=== PATIENT | male | born 1975 | race African-American/Black ===

== ENCOUNTER → 2023-10-04 13:01 | Outpatient (CLI) | payer BC, SELFPAY ==
--- NOTE | ~2023-10-04 | US_ITS ---
EXAMINATION: US venous doppler LE RT DATE: 10/04/2023 13:44 INDICATION: Right lower limb pain TECHNIQUE: Dia scale images without and with compression and Doppler images of the right lower extre mity veins were obtained. COMPARISON: None FINDINGS: There is thrombosis in the right popliteal vein. The right common femoral vein, profunda fe moral vein, femoral vein, peroneal trunk, posterior tibial veins, and greater saphenous vein are pavon nt. IMPRESSION: 1. Thrombosis in the right popliteal vein. Reviewed, dictated and finalized at location F. [employer]
== END ==
PROVIDERS: PCP Internal Medicine; Visit Provider Internal Medicine
DX: I82.432 Acute embolism and thrombosis of left popliteal vein (principal)
CPT/HCPCS: 93971

== ENCOUNTER 2023-10-04 14:18 | Emergency (ER) | payer BC, SELFPAY ==
[2023-10-04 14:30] VITALS: BP 185/101; PULSE 72; RESP 18; TEMP 36.6; O2SAT 100
[2023-10-04 14:37] VITALS: BP 117/58; PULSE 50; RESP 18; TEMP 36.7; O2SAT 98
--- NOTE | 2023-10-04 15:56 | ED.EXTPRO ---
HPI - Extremity Problem General Chief complaint: Extremity Problem,Nontraumatic Stated complaint: blood clot right leg Time Seen by Provider: 10/04/23 15:53 Source: patient Mode of arrival: ambulatory Limitations: no limitations Related Data Allergies Allergy/AdvReac Type Severity Reaction Status Date / Time atenolol Allergy Swelling Verified 10/04/23 15:07 nifedipine Allergy Nausea Verified 10/04/23 15:07 Course Vital Signs Vital signs: Vital Signs Temperature 36.6 C 10/04/23 14:30 Pulse Rate 72 10/04/23 14:30 Respiratory Rate 18 10/04/23 14:30 Blood Pressure 185/101 H 10/04/23 14:30 Pulse Oximetry 100 10/04/23 14:30 Oxygen Delivery Room Air 10/04/23 14:30 Temperature 36.7 C 10/04/23 14:37 Pulse Rate 50 L 10/04/23 14:37 Respiratory Rate 18 10/04/23 14:37 Blood Pressure 117/58 L 10/04/23 14:37 Pulse Oximetry 98 10/04/23 14:37 Oxygen Delivery Room Air 10/04/23 14:30 Discharge Plan Discharge Follow-up/Referrals: Elina,Larry Porras MD [Primary Care Provider] -
--- NOTE | 2023-10-04 16:12 | ED.EXTPRO ---
HPI - Extremity Problem General Chief complaint: Extremity Problem,Nontraumatic Stated complaint: blood clot right leg Time Seen by Provider: 10/04/23 15:53 Source: patient Mode of arrival: ambulatory Limitations: no limitations History of Present Illness HPI Narrative: patient is a 47-year-old male who presents the ED with no DVT. Patient reports he had at [facility]- around 1 month ago. He began have pain in his R ankle and posterior lower leg around 4-5 days ago. He then developed swelling in his lower leg yesterday and today. He contacted his primary care doctor for this and received an outpatient venous Doppler ultrasound today, which was positive for R popliteal DVT. He was then sent here for further evaluation. Patient denies any previous history of blood clots. No recent long-distance travel. No other immobilization. No recent surgery. No history of cancer. No hormone use. He denies any chest pain or shortness of breath. Denies cough, hemoptysis, fevers. Denies history of bleeding, rectal bleeding, melena, epistaxis, hematuria. Denies frequent falls. Related Data Allergies Allergy/AdvReac Type Severity Reaction Status Date / Time atenolol Allergy Swelling Verified 10/04/23 15:07 nifedipine Allergy Nausea Verified 10/04/23 15:07 Review of Systems Review of Systems: CONSTITUTIONAL: Denies fever, chills, or sweats. CARDIOVASCULAR: See HPI. RESPIRATORY: Denies cough or dyspnea. GASTROINTESTINAL: Denies abdominal pain, nausea, vomiting. MUSCULOSKELETAL: See HPI. NEUROLOGIC: Denies headache, numbness, or weakness. All systems reviewed & are unremarkable except as noted in HPI and below Exam Narrative: GENERAL: Well appearing, well-nourished, non-toxic, in no acute distress. HEAD: Normocephalic, atraumatic. NECK: Supple. No adenopathy, no masses. RESPIRATORY: Airway patent, respirations nonlabored. Clear to auscultation bilaterally, no rales, rhonchi, wheezing. CARDIOVASCULAR: Regular rate and rhythm without murmurs, rubs, or gallops. Pedal pulses 2+ and equal bilaterally. MUSCULOSKELETAL: Moves all extremities. Strength/ROM intact without gross deformities. Tenderness throughout R lower calf/posterior lower leg/ankle region. 1+ swelling noted. No wounds. No redness. SKIN: Warm, dry, normal color. No rashes. NEURO: A&O X3. Speech clear. Cranial nerves II-XII grossly intact. No ataxic movements. PSYCHIATRIC: Appropriate mood and affect. Normal interaction. Course Vital Signs Vital signs: Vital Signs Temperature 97.8 F 10/04/23 14:30 Pulse Rate 72 10/04/23 14:30 Respiratory Rate 18 10/04/23 14:30 Blood Pressure 185/101 H 10/04/23 14:30 Pulse Oximetry 100 10/04/23 14:30 Oxygen Delivery Room Air 10/04/23 14:30 Temperature 98.0 F 10/04/23 14:37 Pulse Rate 50 L 10/04/23 14:37 Respiratory Rate 18 10/04/23 14:37 Blood Pressure 117/58 L 10/04/23 14:37 Pulse Oximetry 98 10/04/23 14:37 Oxygen Delivery Room Air 10/04/23 14:30 MDM - Extremity (Nontraumatic) MDM Narrative Medical decision making narrative: Patient with positive venous Doppler ultrasound today showing right popliteal vein thrombosis. Provoking factors includes recent COVID-19 infection. No other history of blood clots. No other risk factors known. Patient denying any chest pain or shortness breath, dyspnea on exertion, pleuritic pain. No tachycardia, hypoxia, tachypnea noted. Patient will be started on Eliquis for DVT treatment. Advised close follow-up with primary care doctor for further evaluation. Given very strict return precautions. Discussed anticoagulation and risks of being of such medication. Patient agrees to plan. Discharged in stable condition. Medical Records Attestation: I reviewed the patient's medical records. Lab Data Attestation: I reviewed the patient's lab results. 10/04/23 16:25 10/04/23 16:25 Labs: Lab Results 10/04/23 Range/Units 16:25
[2023-10-04 16:31] LABS: Basophils Percent Auto 0.4 % (0.2-1.2); Eosinophils Absolute Auto 0.2 K/mm3 (0-0.3); Eosinophils Percent Auto 2.3 % (0-4.4); Hematocrit 41.6 % (42.0-52.0); Hemoglobin 13.2 g/dL (14.0-18.0); Immature Granulocyte Absolute 0.02 K/mm3 (0.00-0.031); Immature Granulocyte Percent A 0.3 % (0-0.5); Lymphocytes Absolute Auto 1.39 K/mm3 (0.9-3.2); Lymphocytes Percent Auto 20.2 % (18.3-44.2); Mean Corpuscular HGB Conc 31.7 g/dl (32-36); Mean Corpuscular Hemoglobin 31.3 pg (26-34); Mean Corpuscular Volume 98.6 fl (80-100); Mean Platelet Volume 10.4 fl (7.4-10.4); Monocytes Absolute Auto 0.8 K/mm3 (0.1-0.6); Monocytes Percent Auto 10.9 % (2.6-8.5); Neutrophils Absolute Auto 4.5 K/mm3 (1.3-6.7); Neutrophils Percent Auto 65.9 % (45.5-73.1); Platelet Count Result 156 k/mm3 (150-375); Red Blood Count 4.22 M/mm3 (4.6-6.20); Red Cell Distribution Width 12.4 % (11.5-14.5); White Blood Count 6.9 K/mm3 (4.5-10.0)
[2023-10-04 16:42] LABS: INR 1.1; Prothrombin Time 14.7 Seconds (11.1-14.7)
[2023-10-04 16:43] LABS: Partial Thromboplastin Time 29.3 SECONDS (22.3-36.8)
[2023-10-04 16:52] LABS: Alanine Aminotransferase 25 U/L (6-50); Alkaline Phosphatase 44 U/L (38-126); Anion Gap 9 mmol/L (8-16); Aspartate Amino Transferase 31 U/L (17-59); Bilirubin,Total 0.7 mg/dL (0.2-1.3); Blood Urea Nitrogen 22 mg/dL (9-20); Calcium 9.5 mg/dL (8.4-10.2); Carbon Dioxide 30 mmol/L (22-30); Chloride 99 mmol/L (98-107); Estimated Glomerular Filt Rate > 60; Glucose 90 mg/dL (65-110); Potassium 3.5 mmol/L (3.4-5.0); Sodium 138 mmol/L (137-145)
== END 2023-10-04 17:10 | disposition home or self-care (01) ==
LOC: ANHED 16:46
PROVIDERS: Emergency Provider Physician Assistant; PCP Internal Medicine
DX: I82.431 Acute embolism and thrombosis of right popliteal vein (principal); Z86.16 Personal history of COVID-19
CPT/HCPCS: 36415; 80053; 85025; 85610; 85730; 99283

== ENCOUNTER 2024-06-11 15:33 | Outpatient (CLI) | payer BC, SELFPAY ==
--- NOTE | ~2024-06-11 | US_ITS ---
RIGHT LOWER EXTREMITY VENOUS ULTRASOUND Ordering provider: Larry Antoine, History: . PAIN IN RIGHT LOWER LEG . Comparison: None. FINDINGS: --COMMON FEMORAL: Patent and free of thrombus. Normal compressibility, phasic flow and augmentation. --PROXIMAL SUPERFICIAL FEMORAL: Patent and free of thrombus. Normal compressibility, phasic flow and augmentation. --DISTAL SUPERFICIAL FEMORAL: Patent and free of thrombus. Normal compressibility, phasic flow and au gmentation. --POPLITEAL: Patent and free of thrombus. Normal compressibility, phasic flow and augmentation. --POSTERIOR TIBIAL: Patent and free of thrombus. Normal compressibility, phasic flow and augmentation . IMPRESSION: Negative right lower extremity venous US. No deep vein thrombosis. Reviewed, dictated and finalized at location A.
== END 2024-06-11 15:34 ==
LOC: MICIMG 15:33
PROVIDERS: PCP Internal Medicine; Visit Provider Internal Medicine
DX: M79.661 Pain in right lower leg (principal)
CPT/HCPCS: 93971

== ENCOUNTER 2025-11-05 10:02 | Outpatient (CLI) | payer BC, SELFPAY ==
--- NOTE | ~2025-11-05 | XR_ITS ---
XR knee RT 3V 11/05/2025 10:14 Indication: Right knee pain Procedure: 3 views right knee Comparison: No prior studies for comparison. Findings: There is mild patellofemoral compartment osteoarthritis. There is anatomic alignment. No fracture, subluxation or dislocation. No significant soft tissue abnormality. No foreign bodies. Impression: 1: Mild patellofemoral compartment osteoarthritis. Reviewed, dictated and finalized at location O. [employer] Impression: 1: Mild patellofemoral compartment osteoarthritis.
== END 2025-11-05 10:03 | disposition home or self-care (01) ==
LOC: MICIMG 10:03
PROVIDERS: PCP Internal Medicine
DX: M17.11 Unilateral primary osteoarthritis, right knee (principal)
CPT/HCPCS: 73562